=== PATIENT | female | born 1985 | race African-American/Black ===

== ENCOUNTER 2017-05-20 10:47 | Emergency (ER) | payer BC ==
[~2017-05-20] VITALS: Ht 170.2 cm; Wt 85.5 kg
[~2017-05-20 10:47] MED LIST: AMARYL 2MG T2 MG/TAB PO; AMOXICILLIN 50500 MG PO; DEPO-PROVER400 MG/ML IM; DIFLUCAN150 MG PO; FLEXERIL 1010 MG/TAB PO; GLUCOPHAGE500 MG/TAB PO; GLUCOTROL 5M5 MG/TAB PO; LANTUS100 U/ML SC; LORTAB 5/500 501 TAB PO; NAPROSYN500 MG PO; NO HOME MEDICATIONS; NORCO 325 MG-51 TAB PO
[2017-05-20 10:57] VITALS: TEMP 98.9
[2017-05-20] MEDS ORDERED: MULTIPLE VITAMI1 CAP PO (11:40)
[2017-05-20 11:49] LABS: BASO # 0.1 (0.0-0.2); BASO % 0.6 % (0.0-2.0); EOS # 0.1 (0.0-0.7); EOS % 1.8 % (0-4.0); GRAN # 4.4 (1.4-6.5); GRAN % 57.3 % (42.2-75.2); HEMOGLOBIN 12.2 g/dl (12.5-16.0); LYMPH # 2.6 (1.2-3.4); LYMPH % 33.8 % (20.0-51.0); MEAN CELL VOLUME 77 fl (80.0-100.0); MEAN CORPUSCULAR HEMOGLOBIN 25 pg (27.0-31.0); MEAN CORPUSCULAR HGB CONC 33 g/dl (33.0-37.0); MEAN PLATELET VOLUME 9.5 fl (7.4-10.4); MONO # 0.5 (0.1-0.6); MONO % 6.4 % (1.7-9.3); PLATELET COUNT 291 K/mm3 (130-400); RED BLOOD COUNT 4.81 M/mm3 (4.10-5.30); WHITE BLOOD COUNT 7.8 K/mm3 (4.8-10.8)
[2017-05-20 12:00] LABS: ADJUSTED CALCIUM 8.9 mg/dL (8.4-10.2); ALANINE AMINOTRANSFERASE 18 U/L (9-52); ALBUMIN 4.1 gm/dL (3.5-5.0); ALKALINE PHOSPHATASE 62 U/L (50-136); ANION GAP 8 mmol/L (7-16); BILIRUBIN,TOTAL 0.5 mg/dL (0.0-1.0); BLOOD UREA NITROGEN 18 mg/dL (7-17); CARBON DIOXIDE 24 mmol/L (22-30); CHLORIDE 107 mmol/L (98-107); CREATININE, serum 0.83 mg/dL (0.52-1.25); GLUCOSE 98 mg/dL (74-106); LIPASE 56 U/L (23-300); MAGNESIUM 1.7 mg/dL (1.6-2.3); PHOSPHOROUS 3.4 mg/dL (2.5-4.5); POTASSIUM 3.6 mmol/L (3.4-5.0); SODIUM 139 mmol/L (137-145)
[2017-05-20 12:33] LABS: B-TYPE NATRIURETIC PEPTIDE 23 pg/mL (0-125); TROPONIN-I < 0.012 ng/mL (0.000-0.034)
[2017-05-20 14:06] VITALS: BP 128/83; PULSE 78
== END 2017-05-20 14:23 | disposition home or self-care (01) ==
LOC: COL.ER 10:47
PROVIDERS: Emergency Medicine
DX: I49.3 Ventricular premature depolarization (principal); E11.9 Type 2 diabetes mellitus without complications; F12.10 Cannabis abuse, uncomplicated

== ENCOUNTER 2018-01-09 11:35 | Emergency (ER) | payer SELFPAY ==
[~2018-01-09] VITALS: Ht 170.2 cm; Wt 86.8 kg
[~2018-01-09 11:35] MED LIST changes: +MULTIPLE VITAMI1 CAP PO
[2018-01-09 11:42] VITALS: TEMP 98.3
[2018-01-09] MEDS ORDERED: GLUCOTROL10 MG PO (13:14)
[2018-01-09 14:00] LABS: BASO % 0.2 % (0.0-2.0); EOS % 0.3 % (0-4.0); GRAN # 9.8 (1.4-6.5); GRAN % 85.5 % (42.2-75.2); HEMOGLOBIN 12.7 g/dl (12.5-16.0); LYMPH % 8.3 % (20.0-51.0); MEAN CELL VOLUME 77 fl (80.0-100.0); MEAN CORPUSCULAR HEMOGLOBIN 25 pg (27.0-31.0); MEAN CORPUSCULAR HGB CONC 33 g/dl (33.0-37.0); MEAN PLATELET VOLUME 9.9 fl (7.4-10.4); MONO # 0.6 (0.1-0.6); MONO % 5.5 % (1.7-9.3); PLATELET COUNT 296 K/mm3 (130-400); RED BLOOD COUNT 5.08 M/mm3 (4.10-5.30); REDCELL DISTRIBUTION WIDTH-CV 13.7 % (11.5-14.5)
[2018-01-09 14:16] LABS: ALBUMIN 4.2 gm/dL (3.5-5.0); BILIRUBIN,TOTAL 0.5 mg/dL (0.0-1.0); CALCIUM 9.7 mg/dL (8.4-10.2); CREATININE, serum 0.55 mg/dL (0.52-1.25); POTASSIUM 3.8 mmol/L (3.4-5.0); TOTAL PROTEIN 7.8 gm/dL (6.4-8.2)
[2018-01-09 15:33] LABS: COLLECTION METHOD CLEAN CATCH
[2018-01-09 15:45] LABS: MUCOUS Present /lpf; PH 5 (5-8); URINE APPEARANCE Cloudy; URINE BACTERIA Moderate /hpf; URINE BILIRUBIN Negative (NEGATIVE); URINE BLOOD 2+ (NEGATIVE); URINE COLOR Yellow; URINE GLUCOSE 2+ (NEGATIVE); URINE KETONE Trace (NEGATIVE); URINE LEUKOCYTE ESTERASE 1+ (NEGATIVE); URINE NITRATE Negative (NEGATIVE); URINE PROTEIN(semi-quant) 1+ (NEGATIVE); URINE RBC 0-2 /hpf; URINE UROBILINOGEN Negative (NEGATIVE)
[2018-01-09] MEDS ORDERED: OMNICEF 300MG300 MG PO (16:56)
[2018-01-09] MEDS ORDERED: PHENERGAN 25 TA25 MG PO (16:56)
[2018-01-09] MEDS ORDERED: CIPRO 500MG TA500 MG PO (18:01)
[2018-01-09 19:02] VITALS: BP 140/80; PULSE 94
== END 2018-01-09 19:08 | disposition home or self-care (01) ==
LOC: COL.ER 11:35
PROVIDERS: Emergency Medicine; Physician Assistant
DX: N39.0 Urinary tract infection, site not specified (principal); K52.9 Noninfective gastroenteritis and colitis, unspecified; E11.9 Type 2 diabetes mellitus without complications; F17.210 Nicotine dependence, cigarettes, uncomplicated; Z79.84 Long term (current) use of oral hypoglycemic drugs
CPT/HCPCS: J0696; J1170; J1885; J2405; J7030; Q9967

== ENCOUNTER 2019-03-04 13:26 | Emergency (ER) | payer SELFPAY ==
[~2019-03-04] VITALS: Ht 170.2 cm; Wt 80.5 kg
[~2019-03-04 13:26] MED LIST changes: +CIPRO 500MG TA500 MG PO; +GLUCOTROL10 MG PO; +OMNICEF 300MG300 MG PO; +PHENERGAN 25 TA25 MG PO
[2019-03-04 13:30] VITALS: BP 140/88; TEMP 98.8
[2019-03-04 14:13] LABS: BASO % 0.3 % (0.0-2.0); EOS # 0.1 (0.0-0.7); EOS % 0.6 % (0-4.0); GRAN # 5.5 (1.4-6.5); GRAN % 68.6 % (42.2-75.2); HEMATOCRIT 38.8 % (37.0-47.0); HEMOGLOBIN 12.4 g/dl (12.5-16.0); LYMPH # 1.8 (1.2-3.4); LYMPH % 22.9 % (20.0-51.0); MEAN CELL VOLUME 77 fl (80.0-100.0); MEAN CORPUSCULAR HEMOGLOBIN 25 pg (27.0-31.0); MEAN CORPUSCULAR HGB CONC 32 g/dl (33.0-37.0); MEAN PLATELET VOLUME 9.6 fl (7.4-10.4); MONO # 0.6 (0.1-0.6); MONO % 7.3 % (1.7-9.3); PLATELET COUNT 282 K/mm3 (130-400); RED BLOOD COUNT 5.07 M/mm3 (4.10-5.30); REDCELL DISTRIBUTION WIDTH-CV 13.4 % (11.5-14.5)
[2019-03-04 14:23] LABS: BILIRUBIN,TOTAL 0.4 mg/dL (0.0-1.0); CALCIUM 9.1 mg/dL (8.4-10.2); CREATININE, serum 0.53 (0.52-1.25); POTASSIUM 3.8 mmol/L (3.4-5.0); TOTAL PROTEIN 7.3 gm/dL (6.4-8.2)
[2019-03-04] MEDS ORDERED: NORCO 325 MG-51 TAB PO (15:03)
[2019-03-04 15:07] VITALS: PULSE 90
== END 2019-03-04 15:09 | disposition home or self-care (01) ==
LOC: COL.ER 13:26
PROVIDERS: Physician Assistant
DX: R07.89 Other chest pain (principal); E11.9 Type 2 diabetes mellitus without complications; F17.210 Nicotine dependence, cigarettes, uncomplicated; F12.90 Cannabis use, unspecified, uncomplicated

== ENCOUNTER 2019-03-09 14:44 | Emergency (ER) | payer SELFPAY ==
[~2019-03-09] VITALS: Ht 170.2 cm; Wt 82.7 kg
[2019-03-09 14:51] VITALS: TEMP 98.2
[2019-03-09 18:07] LABS: COLLECTION METHOD CLEAN CATCH
[2019-03-09 18:14] LABS: MUCOUS Present /lpf; PH 6 (5-8); SQUAMOUS EPITHELIAL 0-2 /hpf; URINE APPEARANCE Hazy; URINE BACTERIA None Seen /hpf; URINE BILIRUBIN Negative (NEGATIVE); URINE BLOOD Negative (NEGATIVE); URINE COLOR Yellow; URINE GLUCOSE 3+ (NEGATIVE); URINE KETONE 2+ (NEGATIVE); URINE LEUKOCYTE ESTERASE Negative (NEGATIVE); URINE NITRATE Negative (NEGATIVE); URINE PROTEIN(semi-quant) 1+ (NEGATIVE); URINE RBC 0-2 /hpf
[2019-03-09 18:36] LABS: BASO % 0.2 % (0.0-2.0); EOS % 0.2 % (0-4.0); GRAN % 77.9 % (42.2-75.2); HEMATOCRIT 38.3 % (37.0-47.0); HEMOGLOBIN 12.1 g/dl (12.5-16.0); LYMPH # 1.3 (1.2-3.4); MEAN CELL VOLUME 76 fl (80.0-100.0); MEAN CORPUSCULAR HEMOGLOBIN 24 pg (27.0-31.0); MEAN CORPUSCULAR HGB CONC 32 g/dl (33.0-37.0); MEAN PLATELET VOLUME 9.1 fl (7.4-10.4); MONO # 0.7 (0.1-0.6); MONO % 7.4 % (1.7-9.3); PLATELET COUNT 378 K/mm3 (130-400); RED BLOOD COUNT 5.05 M/mm3 (4.10-5.30)
[2019-03-09 18:49] LABS: ALANINE AMINOTRANSFERASE < 6 U/L (9-52); ALBUMIN 3.9 gm/dL (3.5-5.0); ALKALINE PHOSPHATASE 106 U/L (50-136); ANION GAP 10 mmol/L (7-16); AST,SGOT 16 U/L (15-37); BILIRUBIN,TOTAL 0.5 mg/dL (0.0-1.0); BLOOD UREA NITROGEN 6 mg/dL (7-17); CALCIUM 9.4 mg/dL (8.4-10.2); CARBON DIOXIDE 27 mmol/L (22-30); CHLORIDE 100 mmol/L (98-107); CREATININE, serum 0.48 (0.52-1.25); GLUCOSE 233 mg/dL (74-106); LIPASE 34 U/L (23-300); POTASSIUM 3.5 mmol/L (3.4-5.0); SODIUM 137 mmol/L (137-145); TOTAL PROTEIN 7.5 gm/dL (6.4-8.2)
[2019-03-09] MEDS ORDERED: ZOFRAN ODT4 MG PO (20:54)
[2019-03-09] MEDS ORDERED: NORCO 325 MG-51 TAB PO (20:54)
[2019-03-09 21:49] VITALS: BP 112/74; PULSE 85
== END 2019-03-09 21:20 | disposition home or self-care (01) ==
LOC: COL.ER 14:44
PROVIDERS: Physician Assistant
DX: R10.11 Right upper quadrant pain (principal); E11.9 Type 2 diabetes mellitus without complications; K63.89 Other specified diseases of intestine; F17.210 Nicotine dependence, cigarettes, uncomplicated
CPT/HCPCS: J1885; J2405; J7030; Q9967

== ENCOUNTER 2020-04-14 03:59 | Emergency (ER) | payer SELFPAY ==
[~2020-04-14] VITALS: Ht 170.2 cm; Wt 86.4 kg
[~2020-04-14 03:59] MED LIST changes: +ZOFRAN ODT4 MG PO
[2020-04-14 04:02] VITALS: BP 152/70; TEMP 97.5
[2020-04-14 05:14] VITALS: PULSE 70
== END 2020-04-14 05:14 | disposition home or self-care (01) ==
LOC: COL.ER 03:59
DX: S09.90XA Unspecified injury of head, initial encounter (principal); S40.021A Contusion of right upper arm, initial encounter; S90.31XA Contusion of right foot, initial encounter; S00.01XA Abrasion of scalp, initial encounter; Y04.0XXA Assault by unarmed brawl or fight, initial encounter; Y92.69 Other specified industrial and construction area as the place of occurrence of the external cause